=== PATIENT | female | born 1985 | race American Indian/Alaskan Native ===

== ENCOUNTER 2021-08-22 12:52 | Emergency (ER) | payer SELFPAY ==
--- NOTE | 2021-08-22 17:23 | Emergency Department Report ---
ED Extremity Problem HPI - General Chief complaint: Extremity Injury, Upper Stated complaint: SWOLLEN RT THUMB Time Seen by Provider: 08/22/21 17:12 Source: patient Mode of arrival: Ambulatory Limitations: No Limitations - History of Present Illness Initial comments: Patient is a 36-year-old female presents emergency room complaints of right thumb pain for 2 weeks. She denies any fall, injury, trauma. She denies any increased warmth, redness, fever, chills, nausea, vomiting, numbness, weakness. allergy to aspirin but reports she can take other NSAIDs. - Related Data Previous Rx's Medication Instructions Recorded Last Taken Type Meloxicam [Mobic] 7.5 mg PO QDAY #14 tablet 08/22/21 Unknown Rx Allergies Allergy/AdvReac Type Severity Reaction Status Date / Time aspirin Allergy Hives Verified 08/22/21 15:20 ED Review of Systems ROS: Stated complaint: SWOLLEN RT THUMB Other details as noted in HPI Comment: All other systems reviewed and negative ED Past Medical Hx - Past Medical History Previous Medical History?: No - Surgical History Past Surgical History?: No - Medications Home Medications: Home Medications Medication Instructions Recorded Confirmed Last Taken Type Meloxicam [Mobic] 7.5 mg PO QDAY #14 tablet 08/22/21 Unknown Rx ED Physical Exam - General Limitations: No Limitations General appearance: alert, in no apparent distress - Head Head exam: Present: atraumatic, normocephalic - Eye Eye exam: Present: normal appearance - ENT ENT exam: Present: mucous membranes moist - Extremities Exam Extremities exam: Present: other (ttp to the base of the right thumb on the pa lmar surface, small nodule palpable, no erythema, no increased warmth, FROM of the right thumb, pain with making a thumbs up and full extension, neurovascularly intact) - Neurological Exam Neurological exam: Present: alert, oriented X3 - Psychiatric Psychiatric exam: Present: normal affect, normal mood - Skin Skin exam: Present: warm, dry, intact ED Course Vital Signs 08/22/21 08/22/21 15:18 17:44 Temperature 98.0 F 98.3 F Pulse Rate 77 66 Respiratory 20 12 Rate Blood Pressure 127/63 Blood Pressure 128/80 [Right] O2 Sat by Pulse 100 99 Oximetry ED Medical Decision Making - Medical Decision Making Patient is a 36-year-old female presents emergency room complaints of right thumb pain for 2 weeks. She denies any fall, injury, trauma. She denies any increased warmth, redness, fever, chills, nausea, vomiting, numbness, weakness. allergy to aspirin but reports she can take other NSAIDs. Vitals are normal. On exam:ttp to the base of the right thumb on the palmar surface, small nodule palpable, no erythema, no increased warmth, FROM of the right thumb, pain with making a thumbs up and full extension, neurovascularly intact. Examination cou ld be consistent with tendon sheath nodule, tenosynovitis, ganglion cyst. There are no signs of infection, no cellulitis, no septic joint, no infectious tenosynovitis. Patient placed in thumb spica splint and given prescription for medication. Discussed the importance of outpatient orthopedic follow-up. Discussed strict return precautions advised return to emergency room for any new or worsening symptoms. Critical care attestation.: If time is entered above; I have spent that time in minutes in the direct care of this critically ill patient, excluding procedure time. ED Disposition Clinical Impression: Pain of right thumb Disposition: 01 HOME / SELF CARE / HOMELESS Is pt being admited?: No Does the pt Need Aspirin: No Condition: Stable Instructions: Tendinitis Additional Instructions: Please take medication as prescribed. Follow-up with orthopedic doctor. Return to emergency room for any new or worsening symptoms. Prescriptions: Meloxicam [Mobic] 7.5 mg PO QDAY #14 tablet Referrals: MAXIMILIANO MERCHANT MD [Staff Physician] - 3-5 Days Forms: Work/School Release Form(ED) Time of Disposition: 17:23 Print Language: BULGARIAN
[2021-08-22 17:45] VITALS: BP 128/80
== END 2021-08-22 17:44 | disposition home or self-care (01) ==
LOC: ED 12:52
DX: M79.644 Pain in right finger(s) (principal)
CPT/HCPCS: 99282; 99283